=== PATIENT | female | born 1985 | race Caucasian/White ===

== ENCOUNTER → 2016-08-31 | Outpatient (CLI) | payer MEDICAID ==
--- NOTE | 2016-08-31 14:27 | US ---
Dear Dr. Heart, Thank you for sending your patient, Lora Valentin, to us for a follow-up US to assess interval feta l growth and cardiac anatomy. As you know, the patient is a 30 y.o. G2, P1001 at 23 weeks and 5 days with an EDC of 12/23/16 based on an 8 week US. Her is complicated by chronic hypertension no t on medications and by an NT >95%ile in the first trimester. She has had reassuring NIPT and AFP results this . The patient denies any uterine contractions, vaginal bleeding, or loss of fluid. She reports excellen t movement. Today, she is without complaints. US FINDINGS: Number of fetuses: 1 Placental location: Posterior, no previa presentation: Cephalic Cervix: 4.8 cm, transabdominally MVP: 3.7 cm Measurements: Biparietal diameter: 58 mm, 23 weeks 5 days Head circumference: 214 mm, 23 weeks 4 days Abdominal circumference: 204 mm, 25 weeks 0 days Femur length: 44 mm, 24 weeks 2 days Humerus length: 42 mm, 25 weeks 5 days Transcerebellar diameter: 27 mm, 24 weeks 1 days Cerebral Lateral Ventricle: 5 mm Cisterna Magna: 7 mm Heart Rate: 147 bpm Average ultrasound age: 24 weeks 1 days Estimated weight: 702 g weight percentile: 78% Anatomy: anatomy was previously assessed. Today the following structures were visualized and appeared n ormal: lateral ventricles, posterior fossa, 4CH view, stomach, kidneys, and bladder. The cardiac anatomy was not previously seen. Unfortunately, today, we were unable to better vis ualize the cardiac anatomy secondary to position and maternal habitus. IMPRESSION: 1. Growth: The fetus measures appropriate for gestational age, measuring at a normal weight and perc entile. Visualization of the fetus today reveals no overt structural anomalies. There is evidence of normal amniotic fluid, and movement was seen during the examination. 2. Thickened NT: Today, we were unable to clear the cardiac anatomy. Given 2 failed attempts at our o ffice, we are referring the patient to Pediatric Cardiology at [facility] for a echoca rdiogram. If the echocardiogram is reassuring, no further work-up is required. 3. Chronic Hypertension: We discussed that this diagnosis increases the patient's risk of preeclampsi a, IUGR, and early delivery. - Continue daily baby ASA - Check BPs at home twice daily - Growth US at 30-32 weeks - Delivery at 38-40 weeks - Start oral antihypertensives for BPs >160/100 - If medications are required to control BPs: -- Growth US every 4-6 weeks after 24 weeks -- Twice weekly NSTs and weekly fluid checks starting at 32 weeks -- Delivery at 38+0 weeks or sooner for a change in maternal or status Thank you again for sending this patient to see us today. Approximately 15 minutes were spent with th is patient today with 12 minutes of this time spent in direct face to face counseling regarding today 's US findings and our recommendations. Please contact me with any questions at . Milla Crespo MD Maternal- Medicine
--- NOTE | 2016-08-31 15:13 | US ---
Follow Up Obstetric Ultrasound August 31, 2016 Indication: 31 year year-old 2, para 1-0-0-1 woman following up in the perinatology clinic to assess growth and cardiac anatomy. The estimated gestational age by previous dating is 23 weeks and 5 days yielding an EDC of December 23, 2016. Comparison: August 03, 2016 Findings: Number: 1 Presentation: Vertex Placental location: Posterior and fundal. No previa. Cervix: 4.8 cm, visualized transabdominally Maximum vertical pocket: 3.7 cm heart rate: 147 bpm Biometry: Biparietal diameter: 58 mm 23 weeks, 5 days Head circumference: 214 mm 23 weeks, 4 days Abdominal circumference: 204 mm 25 weeks, 0 days Femur length: 43 mm 24 weeks, 2 days Humerus length: 42 mm 25 weeks, 2 days Transcerebellar diameter: 27 mm 24 weeks, 1 day HC/AC: 1.05 (1.05 - 1.21) FL/BPD: 75% FL/AC: 21% Average ultrasound age: 24 weeks, 1 day EDC based on today's average ultrasound age: December 20, 2016 Estimated weight is 702 grams +/- 102 grams. The estimated weight is at the 78th percenti le based on previous dating (previously 91st percentile). Anatomy Survey: Previously assessed. The four-chamber heart is difficult to optimally evaluate due to positioning and maternal habitus. The outflow tracts could not be optimally characteriz ed. The visualized supratentorial brain, posterior fossa, kidneys, stomach, and urinary bladder are w ithin normal limits. Impression: 1. Living carver in vertex presentation. Size concordant with dates. The estimated ges tational age by biometry is 24 weeks and 1 day yielding an EDC of December 20, 2016. The estimated gestational age by previous dating is 23 weeks and 5 days. 2. The fetus now resides in the 78th percentile (previously 91st). 3. Inadequate evaluation of the heart due to positioning and maternal habitus. 4. Otherwise normal anatomy. 5. Amniotic fluid volume within normal limits. 6. Please refer to Dr. Crespo's perinatology consultation and recommendations for follow up.
== END ==
LOC: FIMAGING 12:17
PROVIDERS: ATTEND Obstetrics & Gynecology
DX: Z34.82 Encounter for supervision of other normal pregnancy, second trimester (principal); Z3A.23 23 weeks gestation of pregnancy

== ENCOUNTER → 2016-11-30 | Outpatient (CLI) | payer OTHER | LOC: FIMAGING 09:03 | PROVIDERS: ATTEND Obstetrics & Gynecology | DX: O10.913 Unspecified pre-existing hypertension complicating pregnancy, third trimester (principal); O99.213 Obesity complicating pregnancy, third trimester; O36.63X0 Maternal care for excessive fetal growth, third trimester, not applicable or unspecified; Z3A.38 38 weeks gestation of pregnancy ==

== ENCOUNTER 2016-12-19 02:22 | Inpatient (IN) | payer OTHER ==
[2016-12-19] MEDS ORDERED: LIDOCAINE 1% 30 ML SDV SC PRN (02:31)
[2016-12-19] MEDS ORDERED: OXYTOCIN/RINGERS LACTATE 1,000 ML IV PRN (02:31)
[2016-12-19] MEDS ORDERED: OLIVE OIL 118 ML BTL MISC PRN (02:31)
[2016-12-19] MEDS ORDERED: EPSOM SALT 454 GM TP PRN (02:31)
[2016-12-19] MEDS ORDERED: LR 1,000 ML IV PRN (02:31)
[2016-12-19] MEDS ORDERED: TERBUTALINE SULFATE 1 MG/ML VIAL IV PRN (02:31)
[2016-12-19] MEDS ORDERED: AMPICILLIN SODIUM 2 GM in NS 100 ML IV ONE (02:31)
[2016-12-19 04:13] LABS: % IMMATURE GRANULYOCYTES 0.5 % (0.0-1.1); ABSOLUTE IMMATURE GRANULOCYTES 0.06 10^3/uL (0.00-0.10); ADD DIFF? NO; ADD MORPH? NO; ADD SCAN? NO; ATYPICAL LYMPHOCYTE FLAG 0 (0-99); FRAGMENT RBC FLAG 0 (0-99); HEMATOCRIT 39.1 % (38.0-47.0); HEMOGLOBIN 13.1 g/dL (12.6-16.3); LEFT SHIFT FLG 0 (0-99); LIPEMIA HEMOLYSIS FLAG 80 (0-99); MEAN CELL HEMOGLOBIN CONCENTR. 33.5 g/dL (32.4-36.7); MEAN CELL VOLUME 86.7 fL (81.5-99.8); MEAN PLATELET VOLUME 11.2 fL (8.7-11.7); PLATELET CLUMPS FLAG 0 (0-99); PLATELET COUNT 299 10^3/uL (150-400); RED BLOOD CELL COUNT 4.51 10^6/uL (4.18-5.33); RED CELL DISTRIBUTION WIDTH 14.1 % (11.5-15.2)
[2016-12-19] MEDS ORDERED: fentaNYL 2MCG/ML/BUP 0.1% RTU 100 ML BAG EP ONE (04:16)
[2016-12-19] MEDS ORDERED: BUPIVACAINE 0.25% 30 ML SDV ONE (04:17)
[2016-12-19] MEDS ORDERED: PHENYLEPHRINE HCL 100 MCG/ML SYR ONE (04:17)
[2016-12-19] MEDS ORDERED: fentaNYL 100 MCG/2 ML INJ ONE (04:18)
[2016-12-19] MEDS ORDERED: AMMONIA AROMATIC 1 EACH AMP IH ONE (05:04)
[2016-12-19] MEDS ORDERED: OLIVE OIL 118 ML BTL ONE (05:04)
[2016-12-19] MEDS ORDERED: LIDOCAINE 1% 30 ML SDV ONE (05:04)
[2016-12-19] MEDS ORDERED: TERBUTALINE SULFATE 1 MG/ML VIAL ONE (05:05)
[2016-12-19] MEDS ORDERED: OXYTOCIN 10 UNIT/ML VIAL ONE (05:05)
[2016-12-19] MEDS ORDERED: MISOPROSTOL 200 MCG TAB ONE (05:05)
[2016-12-19] MEDS ORDERED: ONDANSETRON 4 MG/2 ML VIAL IVP PRN (05:13)
[2016-12-19] MEDS ORDERED: NALOXONE HCL 0.4 MG/ML INJ IVP PRN (05:13)
[2016-12-19] MEDS ORDERED: PHENYLEPHRINE HCL 100 MCG/ML SYR IVP PRN (05:13)
[2016-12-19] MEDS ORDERED: fentaNYL 2MCG/ML/BUP 0.1% RTU 100 ML EP SCH (05:30)
[2016-12-19] MEDS ORDERED: LR 500 ML IV SCH (05:30)
--- NOTE | 2016-12-19 06:50 | GHP ---
[f rep st] HISTORY AND PHYSICAL DATE OF ADMISSION: 12/19/2016 CHIEF COMPLAINT: Leakage of fluid. HISTORY OF PRESENT ILLNESS: Patient is a 31-year-old, at 40 weeks 3 days by LMP and 1st trimester ultrasound who experienced a rupture of membranes at home at 0100. She called after she experienced a gush of fluid and had noted some possible meconium in the fluid and was advised to present to Labor and Delivery. When she presented to Labor and Delivery, she had a reassuring status and she was noted to be closed on exam, but with positive amnisure test and leakage of lightly stained meconium fluid. She began rashmi spontaneously and went into labor after arrival. She was also started on antibiotics for known GBS positive. Her history is significant for a prior vaginal delivery of an 8.5-pound baby in 2013. On a recent ultrasound, this baby was noted to be macrosomic and in the 97th%ile. She is also noted to have intermittent elevated mild range blood pressures, but no evidence of preeclampsia. Her OB labs are notable for blood type O positive, antibody screen negative, hematocrit 37.5, normal Pap smear, rubella immune, nonreactive to RPR, negative urine culture, negative hepatitis B surface antigen, negative HIV, negative Glucola 1-hour screen of 105, negative chlamydia and gonorrhea screening. PAST MEDICAL HISTORY: Maternal obesity with a current weight of 256 pounds. Her pre- weight was 223 pounds. She has no other significant medical or surgical history. FAMILY HISTORY: Noncontributory. MEDICATIONS: vitamin, cyclobenzaprine 5 mg p.r.n., and aspirin 81 mg which was initiated in early for her history of intermittent elevated blood pressures. ALLERGIES: None. OBJECTIVE: VITAL SIGNS: heart rate baseline 120-130, moderate variability, positive accelerations, no decelerations. Contractions every 2-3 minutes. Maternal vital signs: Blood pressure 130/82, pulse 90, temp 37.2. GENERAL: Alert, awake. No acute distress. Respirations unlabored. CARDIOVASCULAR: Regular rate and rhythm. ABDOMEN: Gravid, nontender. EFW 8.5 to 9 pounds. EXTREMITIES: No edema. STERILE VAGINAL: 9 cm dilation, complete effacement, 0 station, vertex presentation, indirect OP presentation. LABORATORIES: White blood cell count 11.5, hematocrit 39.1, platelets 299,000. ASSESSMENT AND PLAN: Patient is a 31-year-old, 2, para 1-0-0-1, at 40 weeks 3 days, in active labor. status reassuring. She initially presented with rupture of membranes and quickly progressed in labor and did obtain an epidural for pain control which is adequate at this time. She is receiving IV ampicillin for her group B streptococcus positive status. Of note , there was light meconium when she presented to Labor and Delivery and she does have a history of a baby with meconium aspiration. A nurse practitioner will be present at delivery. PLAN: Continued expectant management. Continuous monitoring. Position change for OP presentation. IV ampicillin for GBS positive. Expect spontaneous vaginal delivery. /[id number]/MODL MTDD
--- NOTE | 2016-12-19 08:16 | OBPROC ---
- Labor and Delivery Onset of Contractions Date: 12/19/16 Onset of Contractions Time: 03:00 Onset of Contractions Type: Spontaneous Rupture of Membranes Date: 12/19/16 Rupture of Membranes Time: 02:00 Rupture of Membranes Type: Spontaneous Amniotic Fluid Color: Meconium Stained-Light Dilation Complete Time: 07:30 Delivery Type: Spontaneous Placenta Delivery Date: 12/19/16 Episiotomy/Laceration: 1st Degree Repair: 3-0, Vicryl EBL: 300 ml Complications: None - Medications Labor Augmentation/Induction Meds Used: None Anesthesia: Epidural - [place] Info A Delivery Date: 12/19/16 Delivery Time: 07:52 Sex of : Female Score (1 Min): 9 Score (5 Min): 9
[2016-12-19] MEDS: IBUPROFEN 600 MG TAB PO PRN ×2 (10:49→18:22)
[2016-12-19] MEDS: AMPICILLIN SODIUM 1 GM in NS 100 ML IV SCH ×3 (12:06→21:08)
[2016-12-19] MEDS: HYDROCODONE/APAP 5/325 TAB PO PRN ×2 (13:33→20:18)
[2016-12-19 21:27] VITALS: O2SAT 96
[2016-12-20] MEDS: IBUPROFEN 600 MG TAB PO PRN ×3 (00:16→13:37)
[2016-12-20 09:41] VITALS: BP 129/90; PULSE 81; RESP 16; TEMP 98.1
--- NOTE | 2016-12-20 12:49 | OBGCSDC ---
General Delivery Information - General Info : 2 Para: 2 Delivery Date: 12/19/16 Delivery Time: 07:52 Delivery Physician/CNM: Suzan Heart Admission Date: 12/18/16 Labs: Patient ABO/Rh O POSITIVE 12/19/16 04:00 Hct 39.1 % (38.0-47.0) 12/19/16 04:00 - [place] Info Infant A Sex of Infant: Female Score (1 Min): 9 Score (5 Min): 9 Vaginal - Diagnosis IUP (Weeks): 40 3/7 Labor: Spontaneous Rupture of Membranes Type: Spontaneous Amniotic Fluid Color: Meconium Stained-Light Laceration: 1st Degree Repair: 3-0, Vicryl Complications: None - Operations/Procedures Delivery Type: Spontaneous Anesthesia: Epidural - Delivery EBL: 300 ml Anesthesia: Epidural Discharge Information - Discharge Information Discharge Medications: Ibuprofen, Vitamins, Vicodin Condition: Good Instruction/Follow Up: Six Weeks Discharge Physician/CNM: Ju Mena Discharge Date: 12/20/16 Dictated: No
== END 2016-12-20 16:30 | disposition home or self-care (01) | DRG 775 ==
LOC: FLD 02:22 → FOB 11:17
PROVIDERS: ADMIT Obstetrics & Gynecology; ATTEND Obstetrics & Gynecology
PROC: 10E0XZZ Delivery of Products of Conception, External Approach (ICD-10-PCS; principal; 2016-12-19)
PROC: 0HQ9XZZ Repair Perineum Skin, External Approach (ICD-10-PCS; principal; 2016-12-19)
DX: O16.4 Unspecified maternal hypertension, complicating childbirth (principal); O70.0 First degree perineal laceration during delivery; O77.0 Labor and delivery complicated by meconium in amniotic fluid; O99.820 Streptococcus B carrier state complicating pregnancy; O48.0 Post-term pregnancy; O99.214 Obesity complicating childbirth; Z3A.40 40 weeks gestation of pregnancy; Z37.0 Single live birth
CPT/HCPCS: J0290; J2370; J2590; J3010; J3105

== ENCOUNTER → 2017-01-02 | Outpatient (CLI) | payer OTHER | LOC: FLAB 10:15 | PROVIDERS: ATTEND Obstetrics & Gynecology | DX: O92.79 Other disorders of lactation (principal); N64.59 Other signs and symptoms in breast | CPT/HCPCS: G0463 ==

== ENCOUNTER → 2017-01-15 | Outpatient (CLI) | payer OTHER | LOC: FLACT 11:32 | PROVIDERS: ATTEND Obstetrics & Gynecology | DX: Z39.1 Encounter for care and examination of lactating mother (principal); R63.3 Feeding difficulties | CPT/HCPCS: G0463 ==